=== PATIENT | female | born 1965 | race Caucasian/White ===

== ENCOUNTER 2017-09-27 10:07 | Observation (INO) ==
[2017-09-27] MEDS ORDERED: Nitroglycerin 0.4 MG TAB.SUBL SL ONE (10:27)
[2017-09-27] MEDS ORDERED: Aspirin 81 MG TAB.CHEW PO ONE (10:27)
[2017-09-27] MEDS ORDERED: 0.9 % Sodium Chloride 1,000 ML IVC ONE (10:28)
--- NOTE | 2017-09-27 10:31 | Emergency Department Note ---
Disposition Clinical Impression: Unstable angina Hypertension Qualifiers: Hypertension type: unspecified Qualified Code(s): I10 - Essential (primary) hypertension Disposition: Admitted As Inpatient Condition: Fair Chest Pain HPI - General Chief Complaint: ED Chest Pain Stated Complaint: chest pain Time Seen by Provider: 09/27/17 10:12 Source: patient Mode of arrival: ambulatory Limitations: no limitations Vital Signs Reviewed: Yes Nursing Notes Reviewed: Yes - History of Present Illness HPI Narrative: 52-year-old female history of hypertension presented for evaluation of chest pain. Patient states the chest pain started approximately 1:00 this morning. Patient noted to be left-sided with radiation down her left arm. Does notice sharp component to the pain but does report a dull achiness down her left arm. No history of this in the past. Patient reports several episodes of nausea and vomiting with dry emesis. Patient denies any dyspnea. No pleuritic component. No aggravating or alleviating factors. Patient states she took Aleve without any significant benefit. Patient denies any abdominal pain. No fevers. No cough. History of DVTs or PEs. No recent long car rides or periods of immobility. No active cancers. Severity scale (1-10): 7 - Related Data Home Medications Medication Instructions Recorded Confirmed Losartan Potassium [Cozaar] 50 mg PO DAILY 09/27/17 09/27/17 Naproxen [Naproxen] 500 mg PO BID 09/27/17 09/27/17 OLANZapine [Zyprexa] 10 mg PO HS 09/27/17 09/27/17 Quetiapine Fumarate [Seroquel] 100 mg PO HS 09/27/17 09/27/17 Ropinirole HCl [Requip] 0.5 mg PO HS 09/27/17 09/27/17 Trazodone HCl 150 mg PO HS 09/27/17 09/27/17 cloNIDine HCl [CloNIDine HCl] 0.1 mg PO BID 09/27/17 09/27/17 Allergies Allergy/AdvReac Type Severity Reaction Status Date / Time ampicillin Allergy Difficulty Verified 09/27/17 10:58 Breathing Penicillins [PCN] Allergy Difficulty Verified 09/27/17 10:58 Breathing codeine AdvReac Rash Verified 09/27/17 10:58 All systems ED: reviewed and negative except as stated. Constitutional: Reports: as per HPI. Denies: fever Eyes: Reports: as per HPI ENT ED: Reports: as per HPI Cardiovascular: Reports: as per HPI, chest pain Respiratory: Reports: as per HPI. Denies: cough, dyspnea Gastrointestinal: Reports: as per HPI, nausea, vomiting. Denies: abdominal pain Genitourinary: Reports: as per HPI Musculoskeletal: Reports: as per HPI Integumentary: Reports: as per HPI Neurological: Reports: as per HPI Psychiatric: Reports: as per HPI Endocrine: Reports: as per HPI Hematological/Lymphatic: Reports: as per HPI Chest Pain PMH - Past Medical History Medical history: Reports: hypertension Psychiatric history: Reports: anxiety - Social History Smoking Status: Never smoker Alcohol use: Reports: none Drug use: Reports: none Physical Exam - General Limitations: no limitations General appearance: alert, anxious - Head Head exam: atraumatic, normocephalic, normal inspection - Eye Eye exam: Present: normal appearance, PERRL, EOMI - ENT ENT exam: normal exam, normal oropharynx, mucous membranes moist - Neck Neck exam: Present: normal inspection, trachea midline - Chest Chest inspection: Present: normal inspection, symmetric chest wall rise, other ( No overlying rash). Absent: tenderness - Respiratory Respiratory exam: Present: normal lung sounds bilaterally. Absent: respiratory distress - Cardiovascular Cardiovascular exam: Present: regular rate - Abdominal Exam Abdominal exam: Present: soft, Non-Tender - Extremities Exam Extremities exam: Present: normal inspection. Absent: pedal edema - Back Exam Back exam: Present: normal inspection, full ROM. Absent: tenderness - Neurological Exam Neurological exam: Present: alert, oriented X3 - Psychiatric Psychiatric exam: Present: anxious - Skin Skin exam: Present: warm, dry, intact, normal color Course Course Narrative: 52-year-old female percents for evaluation of chest pain. Patient will get a cardiac evaluation with EKG, chest x-ray troponin. Patient's low risk for pulmonary embolism will get a d-dimer. Significant other at bedside states the patient does have a concerning pain medication history. During the course of the examination the patient was requesting IV pain medication. - Reevaluation(s) Reevaluation #1: Patient seen and examined. Patient appears to be resting comfortably. Discussed using nonnarcotic pain medicine to treat cardiac etiology of pain. Patient is agreeable with plan of care. Time: 11:05 Reevaluation #2: Patient seen and examined. Patient states that the pain medicine did seem to improve her pain. Discussed likely admission given the patient's history of hypertension and history of present illness. Time: 12:15 Reevaluation #3: Patient's repeat EKG shows sinus arrhythmia with a rate of 76 humerus V1 and V2. Patient's EKG is unchanged from prior EKG. Time: 13:22 Vital Signs Temperature 98.1 F 09/27/17 10:13 Pulse Rate 80 09/27/17 10:13 Respiratory Rate 18 09/27/17 10:13 Blood Pressure 173/106 09/27/17 10:13 O2 Sat by Pulse Oximetry 97 09/27/17 10:13 Temperature 98.5 F 09/27/17 14:27 Pulse Rate 89 09/27/17 14:27 Respiratory Rate 16 09/27/17 14:27 Blood Pressure 144/85 09/27/17 14:27 O2 Sat by Pulse Oximetry 97 09/27/17 14:27 Oxygen Delivery Oxygen Delivery Room Air Chest Pain - [facility] Narrative Medical decision making narrative: 52 female presented for virus of chest pain. Patient does not have a cardiac history. Patient did have a concerning story with left-sided pain with radiation down her left arm. Patient was treated with nitroglycerin as well as aspirin. Patient pain was not completely relieved and required morphine. Patient troponin is negative. Patient's EKG shows T-wave inversions in V1 and V2 V3 with no prior EKG for comparison. Patient is low risk for pulmonary realism and a d-dimer was ordered. Patient does have a concerning history provided by family/friend at bedside and states that she possibly has opioid dependence. - Lab Data Lab results reviewed: Yes I reviewed the patient's lab results. Result diagrams: 09/27/17 12:03 09/27/17 12:03 Lab Results 09/27/17 09/27/17 09/27/17 Range/Units 12:03 12:03 12:03 WBC 4.9 (4.3-11.1) K/mcL RBC 4.15 (3.82-4.97) M/mcL Hgb 12.8 (11.5-15.4) g/dL Hct 39.3 (35.3-44.9) % MCV 94.7 (83.0-100.0) fL MCH 30.8 (28.0-33.3) pg MCHC 32.6 (31.6-35.5) g/dL RDW 12.3 (11.5-14.5) % Plt Count 257 (140-400) K/mcL MPV 9.2 L (9.4-12.4) fL Immature Gran % 0.2 (0-4) % Seg Neutrophils % 71.5 % Lymphocytes % 20.9 % Monocytes % 4.1 % Eosinophils % 2.9 % Basophils % 0.4 % Neutrophils # 3.5 (1.6-8.9) K/mcL Lymphocytes # 1.0 (0.6-4.6) K/mcL Monocytes # 0.2 (0.0-1.3) K/mcL Eosinophils # 0.1 (0.0-0.6) K/mcL Basophils # 0.0 (0.0-0.2) K/mcL D-Dimer 296 (0-500) ng/mLFEU Sodium 140 (136-145) mEq/L Potassium 4.0 (3.5-5.1) mEq/L Chloride 106 (98-107) mEq/L Carbon Dioxide 25 (23-29) mEq/L BUN 12 (6-20) mg/dL Creatinine 0.90 (0.60-1.20) mg/dL Est GFR ( Amer) > 60 (> 60) Est GFR (Non-Af Amer) > 60 (> 60) BUN/Creatinine Ratio 13 (6-26) Glucose 84 (70-105) mg/dL Calculated Osmolality 289 (280-300) Calcium 9.5 (8.6-10.3) mg/dL Troponin I (< 0.04) ng/mL 09/27/17 Range/Units 12:03 WBC (4.3-11.1) K/mcL RBC (3.82-4.97) M/mcL Hgb (11.5-15.4) g/dL Hct (35.3-44.9) % MCV (83.0-100.0) fL MCH (28.0-33.3) pg MCHC (31.6-35.5) g/dL RDW (11.5-14.5) % Plt Count (140-400) K/mcL MPV (9.4-12.4) fL Immature Gran % (0-4) % Seg Neutrophils % % Lymphocytes % % Monocytes % % Eosinophils % % Basophils % % Neutrophils # (1.6-8.9) K/mcL Lymphocytes # (0.6-4.6) K/mcL Monocytes # (0.0-1.3) K/mcL Eosinophils # (0.0-0.6) K/mcL Basophils # (0.0-0.2) K/mcL D-Dimer (0-500) ng/mLFEU Sodium (136-145) mEq/L Potassium (3.5-5.1) mEq/L Chloride (98-107) mEq/L Carbon Dioxide (23-29) mEq/L BUN (6-20) mg/dL Creatinine (0.60-1.20) mg/dL Est GFR ( Amer) (> 60) Est GFR (Non-Af Amer) (> 60) BUN/Creatinine Ratio (6-26) Glucose (70-105) mg/dL Calculated Osmolality (280-300) Calcium (8.6-10.3) mg/dL Troponin I < 0.03 (< 0.04) ng/mL - Radiology Data Radiology results reviewed: Yes I reviewed the patient's radiology results. Chest X-Ray 09/27/17 10:27 IMPRESSION: No active cardiopulmonary disease D/ / Viral Barboza MD / Viral Barboza MD Interpreting Provider: Viral Barboza MD - EKG Data EKG attestation: Yes I reviewed and interpreted this EKG. EKG shows normal: sinus rhythm Rate: normal Rhythm: NSR Reeves/QRS: normal T wave inversions noted in: aVR, v1, v2, v3 When compared to previous EKG there are: previous EKG unavailable Interpretation: no acute changes, unchanged when compared to prior tracing (date ) Heart Score - Score History: Moderately Suspicious EKG: Non Specific repolarisation Disturbance Age: 45-65 Risk Factors: 1-2 risk factors Troponin: Less than normal limit HEART Score Total: 4 Attestation Statement - Attestation Attestation: I, Chet Hickman DO, examined this patient [id number] and my medical decision-making was reviewed with Dr. Joshua Neumann, Resident Physician. I agree with the documented findings, disposition and treatment plan as described except to the extent set forth below. Please see my progress notes for details. 52-year-old female presents to emergency room for evaluation of left-sided chest pain in the left shoulder. She denies any cardiac history at this time. Patient is concerning for ACS presentation on initial evaluation. Initial EKG does not show any acute signs of ST segment elevation but there is T-wave inversions with potential biphasic presentation in V2 and V3. Patient provided a nitroglycerin trial here in the emergency room at no level resolution of the pain. Patient provided with IV narcotic as well as nausea medication. Patient has screening evaluation for cardiac related disease and will be admitted to the hospital for what appears to be angina. Nitro paste is also plaque consideration did not have resolution of the pain with nitroglycerin. Detailed discussion with the patient with presentation symptoms medical history reviewed. A review of her [place] automated prescription reporting system shows that she typically gets HER prescriptions filled in the [facility]. Unknown whether or why she is in the [facility] today. There is some concern for possible bowl seeking tendencies considering the patient is asked for narcotics multiple times as well as medications that augment narcotic use. We will treat appropriately for anginal equivalent at this time 06 and required or requested admission. Disposition per the treatment course. Otherwise no other acute pathology or traumatic injuries noted. Lungs are clear heart is regular abdomen is soft nontender nondistended with no guarding no rigidity no peritoneal symptoms. She has no signs of edema in lower extremities. Patient is mentating appropriately with no acute neurologic deficits. See detailed documentation of physical exam, medical intervention, medical decision-making and disposition and the resident physician's note. No critical care participation during the treatment course. 1300 Patient has almost complete resolution of his symptoms with narcotic pain medication. Repeat EKG collected at this time and no acute changes. Patient to be admitted for unstable angina like symptoms that did not respond to nitroglycerin.
[2017-09-27] MEDS ORDERED: *HR* Promethazine 25 MG/ML VIAL IVP ONE (11:22)
[2017-09-27] MEDS ORDERED: *HR* Morphine 2 MG/ML SYRINGE IVP ONE ×2 (11:37→13:06)
[2017-09-27 12:10] LABS: Basophils % 0.4 %; Eosinophils # 0.1 K/mcL (0.0-0.6); Eosinophils % 2.9 %; Hematocrit 39.3 % (35.3-44.9); Hemoglobin 12.8 g/dL (11.5-15.4); Immature Granulocytes % 0.2 % (0-4); Lymphocytes % 20.9 %; Mean Corpuscular HGB Conc 32.6 g/dL (31.6-35.5); Mean Corpuscular Hemoglobin 30.8 pg (28.0-33.3); Mean Corpuscular Volume 94.7 fL (83.0-100.0); Mean Platelet Volume 9.2 fL (9.4-12.4); Monocytes # 0.2 K/mcL (0.0-1.3); Monocytes % 4.1 %; Neutrophils # 3.5 K/mcL (1.6-8.9); Platelet Count 257 K/mcL (140-400); Red Blood Count 4.15 M/mcL (3.82-4.97); Red Cell Distribution Width 12.3 % (11.5-14.5); Segmented Neutrophils % 71.5 %
[2017-09-27 12:28] LABS: BUN/Creatinine Ratio 13 (6-26); Blood Urea Nitrogen 12 mg/dL (6-20); Calcium 9.5 mg/dL (8.6-10.3); Carbon Dioxide 25 mEq/L (23-29); Chloride 106 mEq/L (98-107); Glucose 84 mg/dL (70-105); Osmolality,Calculated 289 (280-300); Sodium 140 mEq/L (136-145); eGFR For African Americans > 60 (> 60); eGFR For Non-African Americans > 60 (> 60)
[2017-09-27] MEDS ORDERED: Nitroglycerin 1 INCH/GM PACKET TP ONE (12:52)
[2017-09-27] MEDS ORDERED: Acetaminophen 325 MG TABLET PO PRN (15:15)
[2017-09-27] MEDS ORDERED: Naloxone 0.4 MG/ML INJ IVP PRN (15:15)
--- NOTE | 2017-09-27 15:42 | Internal Med History&Physical ---
Date of Encounter: 09/27/17 Time of Encounter: 15:29 Assessment and Plan (1) Chest pain Current visit: Yes Status: Acute 1 patient was awakened with Left sided CP radiating to L arm. No cardiac hx risk facots HTN Age and father [place] at 48. pain not relieved with nitro. first troponin negative will continue to trend ASA statin- lipid profile cont cardiac monitoring patient requesting dilaudid for pain- feel that is it more muscle skeletal, pain somewhat reproducible across chest. We will give toradol cardiac stress- outpatient - tomorrow holiday no in house stress available consult cardiology Qualifiers: Chest pain type: unspecified Qualified Code(s): R07.9 - Chest pain, unspecified (2) Hypertension Current visit: Yes Status: Acute continue with home medication losartan,clonidine Qualifiers: Hypertension type: unspecified Qualified Code(s): I10 - Essential (primary ) hypertension Internal Medicine - H&P: HPI Chief complaint: CP Admitted From: Emergency Dept Plans for Post Hospital Care: Home History of present illness: Ms. Calhoun is a 52 year old female past medical hx of HTN She was awakened at approx 1am with L sided CP that radiates to L arm. She had associated sx of nausea and vomiting . She describes the pain as sharp and radiates to L arm aching. No cardiac hx in the past, No stress test or cath. No aggrevating factors but states that morphine relieves her pain. Patient is from out of town and is visiting family for holiday. First cardiac troponin is negative no ST T wave abnormalities noted. She has reproducible pain to her chest upon palpation. Reported by nursing staff that patient is requesting Dilaudid for pain . She continue to complain of 5/10 pain, has nitro paste. Past Med Surg Social Fam HX - Past Medical History Medical history: hypertension Psychiatric history: anxiety - Social History Smoking Status: Never smoker Smokeless Tobacco Status: No Alcohol use: none Drug use: none - Family History Father Family Member Ethnicity: Non- Living Status: Hx Family Cardiac Disorders: Yes Internal Medicine - H&P: Meds Losartan Potassium [Cozaar] 50 mg PO DAILY 09/27/17 [History] Naproxen [Naproxen] 500 mg PO BID 09/27/17 [History] OLANZapine [Zyprexa] 10 mg PO HS 09/27/17 [History] Quetiapine Fumarate [Seroquel] 100 mg PO HS 09/27/17 [History] Ropinirole HCl [Requip] 0.5 mg PO HS 09/27/17 [History] Trazodone HCl 150 mg PO HS 09/27/17 [History] cloNIDine HCl [CloNIDine HCl] 0.1 mg PO BID 09/27/17 [History] 3 Allergy/AdvReac Type Severity Reaction Status Date / Time ampicillin Allergy Difficulty Verified 09/27/17 10:58 Breathing Penicillins [PCN] Allergy Difficulty Verified 09/27/17 10:58 Breathing codeine AdvReac Rash Verified 09/27/17 10:58 All Systems PM: A 10-system review of systems was performed and is negative for pertinent findings except as documented above in the HPI. - Constitutional Constitutional: no chills, no fever(s), no night sweats - EENT Eyes: no change in vision, no discharge, no pain, no photophobia Ears: no ear discharge, no ear pain, no tinnitus Nose, mouth and throat: no dysphagia, no nasal discharge, no neck pain, no sore throat - Cardiovascular Cardiovascular ROS IM: chest pain, lightheadedness, no diaphoresis, no dyspnea, no palpitations, no syncope - Respiratory Respiratory: no cough, no dyspnea, no wheezing, no excessive phlegm production - Gastrointestinal Gastrointestinal: nausea, vomiting, no abdominal pain, no diarrhea, no hematemesis, no hematochezia, no melena - Genitourinary Genitourinary: no change in urinary stream, no dysuria, no flank pain, no hematuria - Musculoskeletal Musculoskeletal ROS IM: no numbness, no tingling - Integumentary Integumentary IM: no rash, no unusual bruising - Hematologic/Lymphatic Hematologic/Lymphatic: no easy bruising - Constitutional Vitals: Temp Pulse Resp BP Pulse Ox 98.5 F 89 16 144/85 97 09/27/17 14:27 09/27/17 14:27 09/27/17 14:27 09/27/17 14:27 09/27/17 14:27 General appearance: Present: A&O X 3 - Head Head exam: Present: atraumatic, normocephalic - Eye Eye exam: Present: PERRL, conjuntiva pink, sclera anicteric Pupils: Present: PERRL - Neck Neck exam general surgery: Present: supple, trachea midline. Absent: lymphadenopathy - Respiratory Respiratory exam: Present: CTAB. Absent: accessory muscle use, rales, rhonchi, wheezes - Cardiovascular Cardiovascular exam: Present: RRR, +S1, +S2. Absent: diastolic murmur, gallop, rubs, systolic murmur - GI/Abdominal GI/Abdominal exam: Present: normal bowel sounds, soft, no peritoneal signs. Absent: distended, tenderness - Extremities Exam Extremities exam: Present: warm, radial pulses palpable and symmetrical. Absent : calf tenderness, cyanotic, pedal edema - Neurological Exam Neurological exam: Present: CN II-XII intact, oriented X3, no focal deficits. Absent: pronater drift, facial droop, speech deficit - Skin Skin exam: Present: dry, intact Internal Med - H&P Results - Labs CBC & Chem 7: 09/27/17 12:03 09/27/17 12:03 - EKG Data EKG shows normal: sinus rhythm - Diagnostic Studies Chest x-ray Additional comments: Chest X-Ray 09/27/17 10:27 IMPRESSION: No active cardiopulmonary disease D/ / Viral Barboza MD / Viral Barboza MD Interpreting Provider: Viral Barboza MD
[2017-09-27] MEDS ORDERED: Nitroglycerin 0.4 MG TAB.SUBL SL PRN (16:05)
[2017-09-27] MEDS: Ketorolac 30 MG/ML VIAL IVP PRN (17:17)
[2017-09-27] MEDS: Ondansetron 4 MG/2 ML VIAL IVP PRN (18:40)
[2017-09-27] MEDS: rOPINIRole 0.25 MG TABLET PO SCH (20:07)
[2017-09-27] MEDS: cloNIDine HCl 0.1 MG TABLET PO SCH (20:07)
[2017-09-27] MEDS: OLANZapine 10 MG TAB.RAPDIS PO SCH (20:08)
[2017-09-27] MEDS: traZODone 50 MG TABLET PO SCH (20:24)
[2017-09-28 00:25] LABS: Basophils % 0.5 %; Eosinophils # 0.3 K/mcL (0.0-0.6); Eosinophils % 4.9 %; Immature Granulocytes % 0.2 % (0-4); Immature Platelets 1.5 % (1.1-6.1); Lymphocytes # 1.6 K/mcL (0.6-4.6); Lymphocytes % 24.4 %; Mean Corpuscular HGB Conc 32.4 g/dL (31.6-35.5); Mean Corpuscular Hemoglobin 30.7 pg (28.0-33.3); Mean Platelet Volume 9.1 fL (9.4-12.4); Monocytes # 0.5 K/mcL (0.0-1.3); Monocytes % 6.8 %; Neutrophils # 4.2 K/mcL (1.6-8.9); Platelet Count 274 K/mcL (140-400); Red Blood Count 3.58 M/mcL (3.82-4.97); Red Cell Distribution Width 12.3 % (11.5-14.5); Segmented Neutrophils % 63.2 %
[2017-09-28 00:36] LABS: BUN/Creatinine Ratio 14 (6-26); Blood Urea Nitrogen 15 mg/dL (6-20); Calcium 8.4 mg/dL (8.6-10.3); Carbon Dioxide 26 mEq/L (23-29); Chloride 109 mEq/L (98-107); Chol/HDL Ratio 2.5 (0-4.9); Cholesterol 148 mg/dL (< 200); Glucose 96 mg/dL (70-105); HDL Cholesterol 60 mg/dL (40-59); LDL Cholesterol,Calculated 73 mg/dL (0-99); Magnesium 1.7 mg/dL (1.6-2.6); Osmolality,Calculated 291 (280-300); Potassium 4.1 mEq/L (3.5-5.1); Sodium 140 mEq/L (136-145); Triglycerides 73 mg/dL (< 150); eGFR For African Americans > 60 (> 60); eGFR For Non-African Americans 52 (> 60)
[2017-09-28] MEDS: Ketorolac 30 MG/ML VIAL IVP PRN ×3 (03:36→17:31)
[2017-09-28] MEDS: Aspirin 81 MG TAB.CHEW PO SCH (08:46)
[2017-09-28] MEDS: cloNIDine HCl 0.1 MG TABLET PO SCH ×2 (08:46→19:55)
[2017-09-28] MEDS ORDERED: GI Cocktail 40 ML EACH PO ONE (09:13)
--- NOTE | 2017-09-28 09:17 | Internal Med Progress Note ---
<Markus Warren - Last Filed: 09/28/17 09:14> Date of Encounter: 09/28/17 Time of Encounter: 09:14 - Assessment and plan (1) Chest pain Current Visit: Yes Status: Acute Assessment and plan: left chest, constant, not exacerbated with movement/exertion, no relieving factors started two days ago radiates to left shoulder and arm woke patient up family hx of CAD disease (father) non smoker not diabetic ldl 73, hdl 60 trop negative x 3 EKG sinus rhythm cxr negative. non-smoker reports lightheadedness when sitting up from bed atypical chest pain. low to intermediate risk (family history) plan: echo, stress test, orthostatic vitals Qualifiers: Chest pain type: unspecified Qualified Code(s): R07.9 - Chest pain, unspecified (2) Insomnia Current Visit: Yes Status: Acute Assessment and plan: hx of insomnia stable continue home medications seroquel, zyprexa Qualifiers: Insomnia type: primary Qualified Code(s): F51.01 - Primary insomnia (3) NSAID long-term use Current Visit: Yes Status: Acute Assessment and plan: hx of chronic NSAID use chest pain may be 2nd to GERD denies hx of heart burn try GI cocktail for relief. (4) Hypertension Current Visit: Yes Status: Acute Assessment and plan: controlled. on clonidine and losartan. Qualifiers: Hypertension type: essential hypertension Qualified Code(s): I10 - Essential (primary) hypertension - Subjective Interval history: Patient continues to have constant Left chest pain that is sharp and radiates to the arm. She has been given Tylenol and Toradol for the pain. She reports becoming dizzy when standing up from her bed. She has been experiencing them since 2 days ago. She denies nausea, palpitations, shortness of breath, vomiting, lower extremity swelling, abdominal pain. - Constitutional Vitals: Temp Pulse Resp BP Pulse Ox 98.4 F 75 16 143/87 98 09/28/17 06:58 09/28/17 06:58 09/28/17 06:58 09/28/17 06:58 09/28/17 06:58 General appearance: Present: A&O X 3 - Other Additional findings: General: Pleasant without distress Heart: Regular rate and rhythm with no murmur Lungs: Clear to auscultation bilaterally Abdomen: Soft nontender, nondistended positive bowel sounds. Abdominal scar from previous cholecystectomy Skin: warm and dry Extremities: Absent pedal edema, Neuro: Cranial nerves II through XII intact, UE and LE sensation equal bilaterally, UE and LEstrength 5/5, alert oriented 3, Vascular: Pedal and radial pulses 2 out of 4 Internal Medicine: Result - Labs CBC & Chem 7: 09/28/17 00:11 09/28/17 00:11 Labs: Short CBC 09/28/17 Range/Units 00:11 WBC 6.6 (4.3-11.1) K/mcL Hgb 11.0 L D (11.5-15.4) g/dL Hct 34.0 L (35.3-44.9) % Plt Count 274 (140-400) K/mcL Neutrophils # 4.2 (1.6-8.9) K/mcL BMP 09/28/17 00:11 Sodium 140 Potassium 4.1 Chloride 109 H Carbon Dioxide 26 BUN 15 Creatinine 1.09 Glucose 96 Calcium 8.4 L Cardiac Enzymes 09/27/17 09/28/17 Range/Units 18:14 00:11 Troponin I < 0.03 < 0.03 (< 0.04) ng/mL - ABG Interpretation ABG results: PT/INR, D-dimer D-Dimer 296 ng/mLFEU (0-500) 09/27/17 12:03 Consult Discharge Plan - Plan Referrals: NONE,PCP [Primary Care Provider] - <Margarito Hatch - Last Filed: 09/28/17 09:33> Date of Encounter: 09/28/17 - Constitutional Vitals: Temp Pulse Resp BP Pulse Ox 98.4 F 75 16 143/87 98 09/28/17 06:58 09/28/17 06:58 09/28/17 06:58 09/28/17 06:58 09/28/17 06:58 Internal Medicine: Result - Labs CBC & Chem 7: 09/28/17 00:11 09/28/17 00:11 Labs: Short CBC 09/28/17 Range/Units 00:11 WBC 6.6 (4.3-11.1) K/mcL Hgb 11.0 L D (11.5-15.4) g/dL Hct 34.0 L (35.3-44.9) % Plt Count 274 (140-400) K/mcL Neutrophils # 4.2 (1.6-8.9) K/mcL BMP 09/28/17 00:11 Sodium 140 Potassium 4.1 Chloride 109 H Carbon Dioxide 26 BUN 15 Creatinine 1.09 Glucose 96 Calcium 8.4 L Cardiac Enzymes 09/27/17 09/28/17 Range/Units 18:14 00:11 Troponin I < 0.03 < 0.03 (< 0.04) ng/mL - ABG Interpretation ABG results: PT/INR, D-dimer D-Dimer 296 ng/mLFEU (0-500) 09/27/17 12:03 - Attending Attestation I examined this patient and my medical decision-making was reviewed with the Resident Physician. I agree with the documented findings, disposition and treatment plan as described except to the extent set forth below. I have seen and examined the patient. Patient is awake and alert. Not in any distress. Complaints of left-sided chest pain which was radiating to her left arm. She states the pain is sharp and rates it 8/10. Patient does have a past medical history significant for hypertension and chronic insomnia. Patient states she takes Seroquel and Zyprexa for insomnia. Patient does not smoke. She does have a family history of coronary artery disease. Admitted for chest pain rule out ACS. EKG shows sinus rhythm with no acute ST changes. Troponin is within normal limits 3. Lipid panel has been reviewed. Chest x-ray does not show any acute process. Patient will need a echocardiogram and stress test. We will continue Aspirin and Lipitor at this time. Patient continues to complain of pain and is requesting more pain medication. She is currently on IV Toradol as needed and also on sublingual Nitro as needed. Patient has been explained about her condition and plan of care. She understood and agreed. No unanswered questions. CODE STATUS full code. Heart - S1-S2 positive. Lungs - bilateral good air entry no wheezes or crackles. Abdomen - soft nontender. Extremities - all pulses strong and regular, no edema. Neurological - awake and alert, no deficits noted.
[2017-09-28 10:05] LABS: Amphetamine Screen,Urine Negative ng/mL (Cutoff=1000); Barbiturate Screen,Urine Negative ng/mL (Cutoff=200); Benzodiazepines Screen,Urine Negative ng/mL (Cutoff=200); Cannabinoid Screen,Urine Negative ng/mL (Cutoff = 50); Cocaine Screen,Urine Negative ng/mL (Cutoff= 300); Opiate Screen,Urine Positive ng/mL (Cutoff=300); Phencyclidine Screen,Urine Negative ng/mL (Cutoff=25)
[2017-09-28] MEDS: Ondansetron 4 MG/2 ML VIAL IVP PRN ×2 (14:07→22:04)
[2017-09-28] MEDS: traMADol 50 MG TABLET PO PRN ×2 (14:49→23:16)
[2017-09-28] MEDS: *HR* Heparin 5,000 UNIT/ML VIAL SQ SCH (17:31)
[2017-09-28] MEDS: rOPINIRole 0.25 MG TABLET PO SCH (19:55)
[2017-09-28] MEDS: OLANZapine 10 MG TAB.RAPDIS PO SCH (19:55)
[2017-09-28] MEDS: traZODone 50 MG TABLET PO SCH (19:55)
[2017-09-29] MEDS: Ketorolac 30 MG/ML VIAL IVP PRN ×2 (04:05→21:14)
[2017-09-29] MEDS: *HR* Heparin 5,000 UNIT/ML VIAL SQ SCH ×2 (07:24→17:33)
--- NOTE | 2017-09-29 08:20 | Internal Med Progress Note ---
<Valorie Adorno - Last Filed: 09/29/17 08:18> Date of Encounter: 09/29/17 Time of Encounter: 08:18 - Assessment and plan (1) Chest pain Current Visit: Yes Status: Acute Assessment and plan: left chest, constant, not exacerbated with movement/exertion, no relieving factors started two days ago radiates to back, left shoulder, and arm woke patient up family hx of CAD disease (father) non-smoker, not diabetic ldl 73, hdl 60 trop negative x 3, EKG sinus rhythm, cxr negative reports lightheadedness when sitting up from bed, orthostatic BP negative echo: EF 60-65%, mild left ventricular diastolic dysfunction. atypical chest pain low to intermediate risk for ACS (family history) plan: stress test check lipase Qualifiers: Chest pain type: unspecified Qualified Code(s): R07.9 - Chest pain, unspecified (2) Insomnia Current Visit: Yes Status: Acute Assessment and plan: hx of insomnia stable continue home medications seroquel, zyprexa Qualifiers: Insomnia type: primary Qualified Code(s): F51.01 - Primary insomnia (3) Hypertension Current Visit: Yes Status: Acute Assessment and plan: chronic, controlled. on clonidine and losartan. Qualifiers: Hypertension type: essential hypertension Qualified Code(s): I10 - Essential (primary) hypertension (4) NSAID long-term use Current Visit: Yes Status: Acute Assessment and plan: hx of chronic NSAID use chest pain may be 2nd to GERD denies hx of heart burn GI cocktail did not relieve pain - Subjective Interval history: Patient reports constant retrosternal chest pain that radiates to her back and down her left arm. This is minimally to moderately relieved with the pain medicine. - Constitutional Vitals: Temp Pulse Resp BP Pulse Ox 97.8 F 67 16 134/84 99 09/29/17 07:03 09/29/17 07:03 09/29/17 07:03 09/29/17 07:03 09/29/17 07:03 General appearance: Present: A&O X 3, no acute distress, answers questions appropriately - Head Head exam: Present: atraumatic, normocephalic - Eye Eye exam: Present: PERRL, conjuntiva pink, sclera anicteric Pupils: Present: PERRL - Neck Neck exam general surgery: Present: supple, trachea midline. Absent: lymphadenopathy - Respiratory Respiratory exam: Present: CTAB. Absent: accessory muscle use, rales, rhonchi, wheezes - Cardiovascular Cardiovascular exam: Present: RRR, +S1, +S2. Absent: diastolic murmur, gallop, rubs, systolic murmur - GI/Abdominal GI/Abdominal exam: Present: normal bowel sounds, soft, no peritoneal signs. Absent: distended, tenderness - Neurological Exam Neurological exam: Present: alert, oriented X3 - Skin Skin exam: Present: dry, intact Internal Medicine: Result - Labs CBC & Chem 7: 09/28/17 00:11 09/28/17 00:11 - ABG Interpretation ABG results: PT/INR, D-dimer D-Dimer 296 ng/mLFEU (0-500) 09/27/17 12:03 - Impressions Impressions Echocardiogram 09/28/17 07:49 Impressions: LVEF 60-65%. Mild left ventricular diastolic dysfunction. No significant valvular dysfunction. Left Ventricular Wall Motion: Rest Echo Findings All wall segments showed normal motion. Findings: Study Quality * Technically adequate exam. Right Ventricle * Normal right ventricular structure and function. Left Atrium * Normal left atrial size. Right Atrium * Normal right atrial size. Aortic Valve * Trileaflet aortic valve with normal function. Mitral Valve * Normal mitral valve structure and function. Interatrial Septum * No evidence of PFO by color Doppler. Aorta * Normally sized aortic root. Pericardium * The pericardium appears normal. ECG Findings * Normal sinus rhythm. Left Ventricle * LVEF 60-65%. * Mild left ventricular diastolic dysfunction. Tricuspid Valve * No tricuspid stenosis. * Unable to estimate RVSP due to lack of TR jet. * No tricuspid regurgitation. Pulmonic Valve * No pulmonic stenosis. * No pulmonic regurgitation. Consult Discharge Plan - Plan Instructions: Chest Pain (DC) Additional Instructions: Please follow up with your primary care physician within a week regarding your hospitalization. Referrals: NONE,PCP [Primary Care Provider] - <Hubert Zamudio - Last Filed: 09/29/17 18:38> Date of Encounter: 09/29/17 - Constitutional Vitals: Temp Pulse Resp BP Pulse Ox 98.6 F 86 16 130/77 100 09/29/17 11:25 09/29/17 17:01 09/29/17 11:25 09/29/17 17:01 09/29/17 11:25 Internal Medicine: Result - Labs CBC & Chem 7: 09/29/17 08:18 09/29/17 08:18 Labs: Short CBC 09/29/17 Range/Units 08:18 WBC 4.3 (4.3-11.1) K/mcL Hgb 12.1 (11.5-15.4) g/dL Hct 37.1 (35.3-44.9) % Plt Count 233 (140-400) K/mcL Neutrophils # 2.3 (1.6-8.9) K/mcL BMP 09/29/17 08:18 Sodium 141 Potassium 4.1 Chloride 108 H Carbon Dioxide 31 H BUN 13 Creatinine 0.96 Glucose 92 Calcium 8.5 L - ABG Interpretation ABG results: PT/INR, D-dimer D-Dimer 296 ng/mLFEU (0-500) 09/27/17 12:03 - Attending Attestation I conducted a face to face diagnostic evaluation of this patient and my medical decision-making was reviewed with the Resident Physician, Dr Valorie Adorno. I agree with the documented findings, disposition and treatment plan as described except to the extent set forth below: Patient will have stress test to evaluate for cardiac ischemia today. On exam she is in no distress. Heart is regular S1-S2. Lungs are clear. There is no tenderness to palpation of the precordium. Hubert Zamudio MD
[2017-09-29 08:29] LABS: Basophils % 0.5 %; Eosinophils # 0.3 K/mcL (0.0-0.6); Eosinophils % 7.7 %; Hematocrit 37.1 % (35.3-44.9); Hemoglobin 12.1 g/dL (11.5-15.4); Immature Granulocytes % 0.2 % (0-4); Lymphocytes # 1.4 K/mcL (0.6-4.6); Lymphocytes % 31.8 %; Mean Corpuscular HGB Conc 32.6 g/dL (31.6-35.5); Mean Corpuscular Hemoglobin 30.7 pg (28.0-33.3); Mean Corpuscular Volume 94.2 fL (83.0-100.0); Mean Platelet Volume 8.8 fL (9.4-12.4); Monocytes # 0.3 K/mcL (0.0-1.3); Neutrophils # 2.3 K/mcL (1.6-8.9); Platelet Count 233 K/mcL (140-400); Red Blood Count 3.94 M/mcL (3.82-4.97); Red Cell Distribution Width 12.2 % (11.5-14.5); Segmented Neutrophils % 52.8 %
[2017-09-29 08:39] LABS: BUN/Creatinine Ratio 14 (6-26); Blood Urea Nitrogen 13 mg/dL (6-20); Calcium 8.5 mg/dL (8.6-10.3); Carbon Dioxide 31 mEq/L (23-29); Chloride 108 mEq/L (98-107); Glucose 92 mg/dL (70-105); Lipase 22 Units/L (11-82); Osmolality,Calculated 292 (280-300); Potassium 4.1 mEq/L (3.5-5.1); Sodium 141 mEq/L (136-145); eGFR For African Americans > 60 (> 60); eGFR For Non-African Americans > 60 (> 60)
[2017-09-29] MEDS ORDERED: Regadenoson 0.4 MG/5 ML SYRINGE IVP ONE (13:01)
[2017-09-29] MEDS ORDERED: 0.9 % Sodium Chloride 1,000 ML IVC ONE (13:34)
[2017-09-29] MEDS: Aspirin 81 MG TAB.CHEW PO SCH (14:19)
[2017-09-29] MEDS: cloNIDine HCl 0.1 MG TABLET PO SCH ×2 (14:19→21:14)
[2017-09-29] MEDS: Ondansetron 4 MG/2 ML VIAL IVP PRN (14:24)
[2017-09-29] MEDS: traMADol 50 MG TABLET PO PRN ×2 (14:24→22:47)
--- NOTE | 2017-09-29 15:44 | Discharge Summary ---
<Sarai Donovan - Last Filed: 09/29/17 16:17> Date of Encounter: 09/29/17 Time of Encounter: 14:00 - Discharge Diagnosis (1) Chest pain Priority: Primary Status: Acute Qualifiers: Chest pain type: unspecified Qualified Code(s): R07.9 - Chest pain, unspecified (2) Dizziness Priority: Secondary Status: Acute (3) Hypertension Priority: Secondary Status: Acute Qualifiers: Hypertension type: essential hypertension Qualified Code(s): I10 - Essential (primary) hypertension (4) Insomnia Priority: Secondary Status: Acute Qualifiers: Insomnia type: primary Qualified Code(s): F51.01 - Primary insomnia (5) NSAID long-term use Priority: Secondary Status: Acute - Discharge Medications Home Medications: Losartan Potassium [Cozaar] 50 mg PO DAILY 09/27/17 [History] Naproxen [Naproxen] 500 mg PO BID 09/27/17 [History] OLANZapine [Zyprexa] 10 mg PO HS 09/27/17 [History] Quetiapine Fumarate [Seroquel] 100 mg PO HS 09/27/17 [History] Ropinirole HCl [Requip] 0.5 mg PO HS 09/27/17 [History] Trazodone HCl 150 mg PO HS 09/27/17 [History] cloNIDine HCl [CloNIDine HCl] 0.1 mg PO BID 09/27/17 [History] Allergies/Adverse Reactions: 3 Allergy/AdvReac Type Severity Reaction Status Date / Time ampicillin Allergy Difficulty Verified 09/27/17 10:58 Breathing Penicillins [PCN] Allergy Difficulty Verified 09/27/17 10:58 Breathing codeine AdvReac Rash Verified 09/27/17 10:58 Procedures/tests Complete & Pending: Procedures Performed prior 72 hours Category Date Time Status NM soren perf SPECT multi [NM] Routine Exams 09/29/17 10:10 Taken MR cervical spine wo con [MR] Stat MRI 09/29/17 15:09 Ordered MR head/brain wo con [MR] Stat MRI 09/29/17 15:09 Ordered EV echocardiogram Routine Y 09/28/17 07:49 Completed SP pharm nuclear stress Routine Y 09/29/17 10:09 Completed Date of admission: 09/27/17 13:35 Primary care physician: PCP NONE Discharging clinician: Bor-Padron Izon Anticipated date of discharge: 09/29/17 - Patient Status Disposition: Home, Self-Care Condition: Fair Overall status at discharge: patient is progressing back to baseline - Discharge Instructions Instructions: Chest Pain (DC) Follow Up With: NONE,PCP [Primary Care Provider] - Additional Instructions: Please follow up with your primary care physician within a week regarding your hospitalization. - Diet and Activity Activity: increase activity as tolerated Diet: low fat, low cholesterol, low salt diet Hospital course: Ms. Calhoun is a 52 year old female with PMH of HTN and insomnia who presented to [place] ED with complaint of left-sided sharp chest pain radiating down left arm with associated numbness/tingling. EKG in ED showed no significant ischemic change and first troponin was negative. Patient was admitted on 09/27/17 for chest pain work-up. Patient has negative troponin x3. Echocardiogram on 09/28/17 found LVEF 60-65% with mild LV diastolic dysfunction but no significant valvular dysfunction. Nuclear stress test on 09/29/17 is negative for ischemia or infarct. Patient reports having episodes of dizziness/ pre-syncope while getting up. Orthostatic blood pressure check on 09/28/17 found elevation of BP on standing. It's felt that patient's dizziness is likely from her medications especially those for HTN and insomnia. And IV NS bolus was given to ensure adequate hydration. But patient still has significant concern about her dizziness so repeat orthostatic vitals along with MRI brain and cervical spine were ordered on 09/29/17. Given patient remains hemodynamically stable and her cardiac work-up has been all negative, patient can be discharged home if MRI brain and cervical spine found no abnormality that requires urgent intervention. Patient was instructed to follow up with her PCP. Patient expressed her understanding and agreement with the discharge plan. All questions were answered. - Time Spent with Patient Total time spent providing and/or coordinating discharge services: Greater than 30 minutes - Constitutional Vitals: Temp Pulse Resp BP Pulse Ox 98.6 F 72 16 146/84 100 09/29/17 11:25 09/29/17 11:25 09/29/17 11:25 09/29/17 11:25 09/29/17 11:25 General appearance: Present: A&O X 3, no acute distress, answers questions appropriately - Head Head exam: Present: atraumatic, normocephalic - Eye Eye exam: Present: EOMI, PERRL, conjuntiva pink, sclera anicteric - Neck Neck exam general surgery: Present: normal inspection, supple, trachea midline - Respiratory Respiratory exam: Present: CTAB. Absent: accessory muscle use, rales, rhonchi, wheezes - Cardiovascular Cardiovascular exam: Present: RRR, +S1, +S2 - GI/Abdominal GI/Abdominal exam: Present: normal bowel sounds, soft, no peritoneal signs. Absent: tenderness - Extremities Exam Extremities exam: Present: warm. Absent: cyanotic, pedal edema - Neurological Exam Neurological exam: Present: alert, oriented X3, no focal deficits, strengths equal and symetr throughout. Absent: facial droop, speech deficit - Skin Skin exam: Present: dry, warm <Hubert Zamudio - Last Filed: 09/29/17 18:59> Date of Encounter: 09/29/17 Procedures/tests Complete & Pending: Procedures Performed prior 72 hours Category Date Time Status NM soren perf SPECT multi [NM] Routine Exams 09/29/17 10:10 Taken MR cervical spine wo con [MR] Stat MRI 09/29/17 15:09 Completed MR head/brain wo con [MR] Stat MRI 09/29/17 15:09 Completed EV echocardiogram Routine Y 09/28/17 07:49 Completed SP pharm nuclear stress Routine Y 09/29/17 10:09 Completed Date of admission: 09/27/17 13:35 Primary care physician: PCP NONE Hospital course: Ms. Calhoun is a 52 year old female - Time Spent with Patient Total time spent providing and/or coordinating discharge services: - Constitutional Vitals: Temp Pulse Resp BP Pulse Ox 98.6 F 86 16 130/77 100 09/29/17 11:25 09/29/17 17:01 09/29/17 11:25 09/29/17 17:01 09/29/17 11:25 - Attending Attestation I conducted a face to face diagnostic evaluation of this patient and my medical decision-making was reviewed with the Resident Physician, Dr Valorie Adorno. I agree with the documented findings, disposition and treatment plan as described except to the extent set forth below: Patient is in no acute distress. Heart exam is regular with normal S1 and S2. Lungs are clear. She is neurologically intact with no focal neurological deficits. Lexiscan stress test was negative for ischemia or infarct. Echocardiogram was within normal limits. She reports dizziness lightheadedness and left upper extremity numbness. We will obtain MRI of the brain to rule out posterior fossa ischemic stroke. We obtained MRI of the neck to rule out cervical radiculopathy which could cause numbness and pain and left upper extremity, shoulder and chest area. MRI of the brain shows remote stroke. MRI of the cervical spine shows severe compression of C7 nerve root on the left which corresponds with the patient's symptom. I will keep the patient for tonight and consult with a spine surgeon. Hubert Zamudio MD
--- NOTE | 2017-09-29 16:41 | Electrocardiograph Report ---
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
--- NOTE | 2017-09-29 16:43 | Electrocardiograph Report ---
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
[2017-09-29] MEDS ORDERED: *HR* LORazepam 2 MG/ML VIAL IVP ONE (17:07)
[2017-09-29] MEDS: traZODone 50 MG TABLET PO SCH (21:13)
[2017-09-29] MEDS: OLANZapine 10 MG TAB.RAPDIS PO SCH (21:14)
[2017-09-29] MEDS: rOPINIRole 0.25 MG TABLET PO SCH (21:14)
[2017-09-30] MEDS: Ketorolac 30 MG/ML VIAL IVP PRN (04:16)
[2017-09-30] MEDS: *HR* Heparin 5,000 UNIT/ML VIAL SQ SCH (06:37)
[2017-09-30 07:25] VITALS: BP 121/80
[2017-09-30] MEDS: Aspirin 81 MG TAB.CHEW PO SCH (08:32)
[2017-09-30] MEDS: cloNIDine HCl 0.1 MG TABLET PO SCH (08:33)
[2017-09-30] MEDS: traMADol 50 MG TABLET PO PRN (08:33)
[2017-09-30 09:09] LABS: VBG Ionized Calcium 1.15 mmol/L (1.15-1.35); VBG PH 7.37 pH Units (7.32-7.42)
--- NOTE | 2017-09-30 09:29 | Internal Med Progress Note ---
<Sarai Donovan - Last Filed: 09/30/17 10:12> Date of Encounter: 09/30/17 Time of Encounter: 08:30 - Assessment and plan (1) Chest pain Status: Acute Assessment and plan: - Complaint of left-sided sharp chest pain radiating down left arm with associated numbness/tingling on initial presentation. - Negative troponin x3 and no significant ischemic change on EKG. - Echocardiogram on 09/28/17 found LVEF 60-65% with mild LV diastolic dysfunction but no significant valvular dysfunction. - Nuclear stress test on 09/29/17 is negative for ischemia or infarct. - Given patient remains hemodynamically stable and her cardiac work-up has been all negative, patient can be discharged home. Please see my discharge summary from 09/29/17 for further detail regarding her discharge. Qualifiers: Chest pain type: unspecified Qualified Code(s): R07.9 - Chest pain, unspecified (2) Cervical radiculopathy Status: Acute Assessment and plan: - Reported left arm numbness/tingling starting prior to admission. - MRI cervical spine found left eccentric posterior C6-7 disc osteophyte complex causing mild spinal canal stenosis and severe narrowing of the left C7 neural foramen. - Patient is instructed to follow up with her PCP regarding further referral for possible intervention/treatment. (3) Dizziness Status: Acute Assessment and plan: - Patient states having episodes of dizziness during her hospital stay. - MRI brain found remote lacunar infarct in the left frontal ware radiata white matter but no acute intracranial abnormality. - Orthostatic vital signs checked at two different time do not indicate orthostatic hypotension. - Likely related to patient's medication use. Attempt to discuss with patient regarding decrease of her home dose Seroquel and trazadone but patient refused to have that change. (4) Hypertension Status: Acute Assessment and plan: - Continue home dose clonidine and losartan. Qualifiers: Hypertension type: essential hypertension Qualified Code(s): I10 - Essential (primary) hypertension (5) Insomnia Status: Acute Assessment and plan: - History of insomnia - Continue home medications seroquel, zyprexa Qualifiers: Insomnia type: primary Qualified Code(s): F51.01 - Primary insomnia (6) NSAID long-term use Status: Acute Assessment and plan: - History of chronic NSAID use - Subjective Interval history: Patient was seen and examined this morning. Patient stats she still has some dizziness but she is able to ambulate. Patient denies fever, chills, chest pain , shortness of breath and abdominal pain. - Constitutional Vitals: Temp Pulse Resp BP Pulse Ox 98.6 F 72 16 121/80 98 09/30/17 07:00 09/30/17 07:00 09/30/17 07:00 09/30/17 07:00 09/30/17 07:00 General appearance: Present: A&O X 3, no acute distress, answers questions appropriately - Head Head exam: Present: normal inspection - Eye Eye exam: Present: EOMI, conjuntiva pink, sclera anicteric - Neck Neck exam general surgery: Present: supple, trachea midline - Respiratory Respiratory exam: Present: CTAB. Absent: accessory muscle use, rales, rhonchi, wheezes - Cardiovascular Cardiovascular exam: Present: RRR, +S1, +S2 - GI/Abdominal GI/Abdominal exam: Present: normal bowel sounds, soft, no peritoneal signs. Absent: tenderness - Extremities Exam Extremities exam: Present: pedal edema (Mild), warm. Absent: cyanotic - Neurological Exam Neurological exam: Present: alert, no focal deficits. Absent: facial droop, speech deficit - Skin Skin exam: Present: dry, warm Internal Medicine: Result - Labs CBC & Chem 7: 09/29/17 08:18 09/29/17 08:18 - ABG Interpretation ABG results: PT/INR, D-dimer D-Dimer 296 ng/mLFEU (0-500) 09/27/17 12:03 - Impressions Impressions Brain MRI 09/29/17 15:09 IMPRESSION: 1. No acute intracranial abnormality. 2. Remote lacunar infarct in the left frontal ware radiata white matter. D/ / Dilshad Cleaning / Dilshad Cleaning Interpreting Provider: Dilshad Cleaning Cervical Spine MRI 09/29/17 15:09 IMPRESSION: 1. Nonspecific focus of signal abnormality in the left elda cord at the C2 level may reflect focal myelomalacia or sequela of demyelination. Postcontrast MRI of the cervical spine is recommended for further evaluation. 2. Mild C5-6 and C6-7 degenerative disc disease. 3. Left eccentric posterior C6-7 disc osteophyte complex causes mild spinal canal stenosis and severe narrowing of the left C7 neural foramen. 4. Mild bilateral C6 and right C7 neural foraminal narrowing secondary to uncovertebral hypertrophy. D/ / Dilshad Cleaning / Dilshad Cleaning Interpreting Provider: Dilshad Cleaning Consult Discharge Plan - Plan Instructions: Chest Pain (DC) Additional Instructions: Please follow up with your primary care physician within a week regarding your hospitalization. Referrals: NONE,PCP [Primary Care Provider] - (Please follow up with Dr. Wilfred Perez on 1100.) <Hubert Zamudio - Last Filed: 09/30/17 18:01> Date of Encounter: 09/30/17 - Constitutional Vitals: Temp Pulse Resp BP Pulse Ox 98.6 F 72 16 121/80 98 09/30/17 07:00 09/30/17 07:00 09/30/17 07:00 09/30/17 07:00 09/30/17 07:00 Internal Medicine: Result - Labs CBC & Chem 7: 09/29/17 08:18 09/29/17 08:18 - ABG Interpretation ABG results: PT/INR, D-dimer D-Dimer 296 ng/mLFEU (0-500) 09/27/17 12:03 - Impressions Impressions Brain MRI 09/29/17 15:09 IMPRESSION: 1. No acute intracranial abnormality. 2. Remote lacunar infarct in the left frontal ware radiata white matter. D/ / Dilshad Cleaning / Dilshad Cleaning Interpreting Provider: Dilshad Cleaning Cervical Spine MRI 09/29/17 15:09 IMPRESSION: 1. Nonspecific focus of signal abnormality in the left elda cord at the C2 level may reflect focal myelomalacia or sequela of demyelination. Postcontrast MRI of the cervical spine is recommended for further evaluation. 2. Mild C5-6 and C6-7 degenerative disc disease. 3. Left eccentric posterior C6-7 disc osteophyte complex causes mild spinal canal stenosis and severe narrowing of the left C7 neural foramen. 4. Mild bilateral C6 and right C7 neural foraminal narrowing secondary to uncovertebral hypertrophy. D/ / Dilshad Cleaning / Dilshad Cleaning Interpreting Provider: Dilshad Cleaning - Attending Attestation I conducted a face to face diagnostic evaluation of this patient and my medical decision-making was reviewed with the Resident Physician, Dr Sarai Donovan. I agree with the documented findings, disposition and treatment plan as described except to the extent set forth below: Patient is no acute distress. Heart is regular. Lungs are clear. She continues to complain of left shoulder pain. I recommend Aleve twice a day and follow-up with PCP. Hubert Zamudio MD
== END 2017-09-30 17:10 | disposition home or self-care (01) ==
LOC: EMEROO 10:07 → 3BNU 10:07 → SUATTDRO 13:35 → 3BNU 14:27
PROVIDERS: ADMIT Internal Medicine Nephrology; ATTEND Internal Medicine